=== PATIENT | male | born 1970 ===

== ENCOUNTER 2021-09-17 15:20 | Emergency (ER) | payer SELFPAY ==
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
== END 2021-09-18 03:00 ==
LOC: ED 15:20
DX: I46.8 Cardiac arrest due to other underlying condition (principal)
CPT/HCPCS: 99291